=== PATIENT | female | born 2005 | race Caucasian/White ===

== ENCOUNTER 2024-12-07 19:19 | Emergency (ER) | payer OTHER ==
[~2024-12-07] VITALS: Ht 167.6 cm; Wt 59.0 kg
[2024-12-07] MEDS ORDERED: NS 1,000 ML IV SCH (19:40)
[2024-12-07] MEDS ORDERED: levETIRAcetam 500 MG in NS 100 ML IV ONE (19:40)
[2024-12-07] MEDS ORDERED: Ondansetron HCl 2 MG / ML 2ML Vial IV ONE (19:40)
[2024-12-07] MEDS ORDERED: Ketorolac Tromethamine 30mg Vial IV ONE (19:40)
[2024-12-07] MEDS ORDERED: AMOX500 PO (20:11)
[2024-12-07] MEDS ORDERED: HYDR1TAB94 PO (20:11)
[2024-12-07] MEDS ORDERED: LEVE500 PO (20:12)
[2024-12-07] MEDS ORDERED: ONDA4ODT MM (21:09)
== END 2024-12-07 21:18 | disposition home or self-care (01) ==
LOC: ER 19:19
DX: R11.2 Nausea with vomiting, unspecified (principal)
CPT/HCPCS: 96374; 96375; 99283-25; J1885; J1953; J2405; J7030